=== PATIENT | female | born 1995 | race Caucasian/White ===

== ENCOUNTER 2018-01-10 11:40 | Emergency (ER) | payer BC, MEDICAID ==
[2018-01-10 12:20] VITALS: BMI 24.5
[2018-01-10 12:26] VITALS: BP 112/71; PULSE 71; RESP 18; TEMP 98.7; O2SAT 100
--- NOTE | 2018-01-10 13:17 | C.PDOC ---
History Of Present Illness 22 year old female presents to the ED with complaints of abnormal vaginal bleeding, occurring on and off for some time now. Associated with low back pain. Current episode began yesterday, prompting patient to come in today for evaluation. Of note, patient receives depo-provera injections and admits that she has had irregular periods in the past. She states that she sees a money position officer in [place], but is not able to be seen until April. Otherwise she denies any nausea, vomiting, diarrhea, dysuria, frequency, incontinence, or other associated symptoms. Time Seen by Provider: 01/10/18 13:01 Chief Complaint (Nursing): Female Genitourinary History Per: Patient History/Exam Limitations: no limitations Onset/Duration Of Symptoms: Days (x2), Intermittent Episodes Current Symptoms Are (Timing): Still Present Abnormal Vaginal Bleeding: Yes Past Medical History Reviewed: Historical Data, Nursing Documentation, Vital Signs Vital Signs: Last Vital Signs Temp 98.7 F 01/10/18 12:10 Pulse 71 01/10/18 12:10 Resp 18 01/10/18 12:10 BP 112/71 01/10/18 12:10 Pulse Ox 100 01/10/18 12:10 - Medical History PMH: No Chronic Diseases Surgical History: No Surg Hx - [facility] Procedures EPISIOTOMY (11/09/13) Family History: States: Unknown Family Hx - Social History Hx Tobacco Use: No Hx Alcohol Use: No Hx Substance Use: No - Immunization History Hx Tetanus Toxoid Vaccination: No Hx Influenza Vaccination: No Hx Pneumococcal Vaccination: No Review Of Systems Constitutional: Negative for: Fever, Chills Gastrointestinal: Negative for: Nausea, Vomiting, Diarrhea Genitourinary: Positive for: Vaginal Bleeding. Negative for: Dysuria, Frequency, Incontinence Musculoskeletal: Positive for: Back Pain Neurological: Negative for: Weakness, Numbness, Incoordination Physical Exam - Physical Exam Appears: Well, Non-toxic, No Acute Distress Skin: Warm, Dry, No Rash Head: Atraumatic, Normacephalic Eye(s): bilateral: Normal Inspection Neck: Normal ROM Chest: Symmetrical Respiratory: No Accessory Muscle Use, Other (no respiratory distress) Gastrointestinal/Abdominal: Soft, No Tenderness, No Distention Back: Normal Inspection, No CVA Tenderness, No Vertebral Tenderness Extremity: Bilateral: Atraumatic, Normal ROM Neurological/Psych: Oriented x3, Normal Speech Gait: Steady ED Course And Treatment - Laboratory Results Urine POC: Negative O2 Sat by Pulse Oximetry: 100 (RA) Pulse Ox Interpretation: Normal Medical Decision Making Medical Decision Making: Impression: Irregular vaginal bleeding Plan: --UA --Urine HCG Progress/Updates: Urine test negative. Counseled patient regarding negative results, and likely diagnosis. Patient requests ultrasound evaluation and expresses frustration that [facility] will not see her sooner. Discussed with patient that ultrasound is not clinically indicated nor emergent and should be done on an outpatient basis. No further ER intervention is indicated. Per RN the patient did not want to wait for any labs and eloped ED without discharge papers Disposition Counseled Patient/Family Regarding: Diagnosis, Need For Followup, Rx Given - Disposition Referrals: [facility] [Outside] [facility] [Outside] Disposition: ELOPEMENT - ER ONLY Disposition Time: 13:16 Condition: STABLE Additional Instructions: Follow up with money position officer for further evaluation outpatient Instructions: Absent or Irregular Periods Forms: [employer] (Mongolian) - POA Present On Arrival: None - Clinical Impression Clinical Impression: Irregular intermenstrual bleeding - PA / TAPER OPERATOR / Resident Statement MD/DO has reviewed & agrees with the documentation as recorded. - Scribe Statement The provider has reviewed the documentation as recorded by the Scribe (Maria R Mclain) All medical record entries made by the Scribe were at my direction and personally dictated by me. I have reviewed the chart and agree that the record accurately reflects my personal performance of the history, physical exam, medical decision making, and the department course for this patient. I have also personally directed, reviewed, and agree with the discharge instructions and disposition.
[2018-01-10 14:15] LABS: HCG,QUALITATIVE URINE NEGATIVE (NEGATIVE); SQUAMOUS EPITHIAL < 1 /hpf (0-5); URINE BILIRUBIN NEGATIVE (NEGATIVE); URINE BLOOD 2+ (NEGATIVE); URINE CLARITY Clear (Clear); URINE COLOR Yellow (YELLOW); URINE GLUCOSE (UA) NORMAL (Normal); URINE LEUKOCYTE ESTERASE NEG Leu/uL (Negative); URINE PROTEIN NEGATIVE (NEGATIVE)
== END 2018-01-10 13:25 | disposition left against medical advice (07) ==
LOC: C.ER 11:40
DX: N92.1 Excessive and frequent menstruation with irregular cycle (principal)

== ENCOUNTER 2018-08-30 10:16 | Emergency (ER) | payer OTHER, MEDICAID ==
[2018-08-30 10:17] VITALS: BMI 24.5
[2018-08-30 10:33] VITALS: RESP 18
--- NOTE | 2018-08-30 11:41 | C.PDOC ---
History Of Present Illness 23 year old female presents for evaluation of itching to the posterior scalp that started last night and swelling to posterior skull and neck noticed today. The pt notes coloring her her last night, while at work today co-workers noticed swelling which prompted ED visit. Denies fever, chills, and any other associated symptoms. Time Seen by Provider: 08/30/18 11:00 Chief Complaint (Nursing): Allergic Reaction History Per: Patient History/Exam Limitations: no limitations Onset/Duration Of Symptoms: Hrs Current Symptoms Are (Timing): Still Present Context: Other (hair coloring. ) Associated Symptoms: Skin Rash, Swelling Recent travel outside of the [place]: No Past Medical History Reviewed: Historical Data, Nursing Documentation, Vital Signs Vital Signs: Last Vital Signs Temp 98.7 F 08/30/18 10:24 Pulse 89 08/30/18 10:24 Resp 18 08/30/18 10:24 BP 118/75 08/30/18 10:24 Pulse Ox 99 08/30/18 10:24 Primary Care Provider: FAMILY PROVIDER,NO - [facility] Procedures EPISIOTOMY (11/09/13) Family History: States: Unknown Family Hx - Social History Hx Tobacco Use: No Hx Alcohol Use: No Hx Substance Use: No - Immunization History Hx Tetanus Toxoid Vaccination: No Hx Influenza Vaccination: No Hx Pneumococcal Vaccination: No Review Of Systems Except As Marked, All Systems Reviewed And Found Negative. Constitutional: Negative for: Fever, Chills Skin: Positive for: Other (posterior scalp and neck: (+) itching (+) swelling) Physical Exam - Physical Exam Appears: Non-toxic, No Acute Distress Skin: Warm, Dry, Other (purple color noticed on the scalp, (+) swelling and scratch wylie on manager client neck. ) Head: Atraumatic, Normacephalic Eye(s): bilateral: Normal Inspection Oral Mucosa: Moist Neck: Normal ROM, Supple Chest: Symmetrical, No Deformity Cardiovascular: Rhythm Regular, No Murmur Respiratory: Normal Breath Sounds, No Rales, No Rhonchi, No Wheezing Gastrointestinal/Abdominal: Normal Exam, Soft, No Tenderness Extremity: Bilateral: Atraumatic, Normal Color And Temperature, Normal ROM Neurological/Psych: Oriented x3, Normal Speech, Normal Cognition ED Course And Treatment O2 Sat by Pulse Oximetry: 99 (RA) Pulse Ox Interpretation: Normal Medical Decision Making Medical Decision Making: Initial plan: -Pepcid -Benadryl -Prednisone Progress/Update: Pt stable for discharge. Prescribed Benadryl, Lidex Topical Solution, Pepcid, and Prednisone. Advised to follow-up with PMD. Disposition - Disposition Disposition: HOME/ ROUTINE Disposition Time: 11:32 Condition: STABLE Additional Instructions: Follow up with PMD/clinic withij 1-2 days. return to ED if feel worse. Prescriptions: DiphenhydrAMINE [Benadryl] 25 mg PO .Q4-6 H #30 cap Fluocinonide [Lidex 0.05% Topical Solution] 1 applic TOP BID #1 bottle Famotidine [Pepcid] 20 mg PO BID #20 tab predniSONE [predniSONE Tab] 2 tab PO DAILY #8 tab Instructions: Contact Dermatitis (DC) Forms: [employer] (Belarusian), Work Excuse Print Language: ROMANIAN - Clinical Impression Clinical Impression: Contact dermatitis - PA / SIGNALS OFFICER / Resident Statement MD/DO has reviewed & agrees with the documentation as recorded. - Scribe Statement The provider has reviewed the documentation as recorded by the Scribe (Rita Arellano) All medical record entries made by the Scribe were at my direction and personally dictated by me. I have reviewed the chart and agree that the record accurately reflects my personal performance of the history, physical exam, medical decision making, and the department course for this patient. I have also personally directed, reviewed, and agree with the discharge instructions and disposition.
[2018-08-30 12:00] VITALS: BP 114/72; PULSE 64; TEMP 98.5
[2018-08-30 12:04] VITALS: O2SAT 99
== END 2018-08-30 12:00 | disposition home or self-care (01) ==
LOC: C.ER 10:16
DX: L25.9 Unspecified contact dermatitis, unspecified cause (principal)